=== PATIENT | male | born 1980 | race Asian ===

== ENCOUNTER 2023-02-14 16:20 | Emergency (ER) | payer BC ==
[~2023-02-14] VITALS: Ht 167.6 cm; Wt 72.6 kg
[2023-02-14 20:49] VITALS: BP 129/72; TEMP 98.5
== END 2023-02-14 20:49 | disposition home or self-care (01) ==
LOC: ED 16:20
PROC: 0HQEXZZ Repair Left Lower Arm Skin, External Approach (ICD-10-PCS; principal; 2023-02-14)
DX: S61.012A Laceration without foreign body of left thumb without damage to nail, initial encounter (principal); W45.8XXA Other foreign body or object entering through skin, initial encounter
CPT/HCPCS: 90715; 99283

== ENCOUNTER 2023-02-24 10:55 | Emergency (ER) | payer BC ==
[~2023-02-24] VITALS: Ht 167.6 cm; Wt 72.6 kg
[2023-02-24 11:15] VITALS: BP 129/83; TEMP 97.4
== END 2023-02-24 11:20 | disposition home or self-care (01) ==
LOC: ED 10:55
DX: Z48.02 Encounter for removal of sutures (principal)